=== PATIENT | female | born 1970 | race Caucasian/White ===

== ENCOUNTER 2020-01-08 15:07 | Emergency (ER) | payer OTHER ==
[~2020-01-08] VITALS: Ht 165.1 cm; Wt 99.8 kg
--- NOTE | 2020-01-08 15:47 | NUR ---
PATIENT WAS SEEN BY . DC, RX AND FOLLOW UP INSTRUCTIONS GIVEN AND EXPLAINED TO PATIENT WHO STATES SHE UNDERSTANDS ALL INSTRUCTIONS.
== END 2020-01-08 15:51 | disposition home or self-care (01) ==
LOC: ER 15:09
DX: J06.9 Acute upper respiratory infection, unspecified (principal)
CPT/HCPCS: 71045; A4663

== ENCOUNTER 2020-01-12 18:45 | Emergency (ER) | payer OTHER ==
[~2020-01-12] VITALS: Ht 165.1 cm; Wt 101.6 kg
[2020-01-12] MEDS ORDERED: IV NORMAL SALINE 1000 ML BAG IV ONE (19:30)
[2020-01-12] MEDS ORDERED: LORAZEPAM 2 MG/1 ML VIAL IV ONE (19:30)
[2020-01-12] MEDS ORDERED: LORAZEPAM 2 MG/1 ML VIAL ONE (19:44)
[2020-01-12 19:52] LABS: BASOPHILS # (AUTO) 0.1 K/uL (0.0-8.0); BASOPHILS % (AUTO) 0.5 % (0.0-2.0); EOSINOPHILS % (AUTO) 0.1 % (0.0-7.0); HEMATOCRIT 42.7 % (31.2-41.9); HEMOGLOBIN 14.4 g/dL (10.9-14.3); LYMPHOCYTES # (AUTO) 2.2 K/uL (20.0-40.0); LYMPHOCYTES % (AUTO) 16.9 % (20.5-51.5); MEAN CORPUSCULAR HEMOGLOBIN 30.8 uug (24.7-32.8); MEAN CORPUSCULAR HGB CONC 34 g/dL (32.3-35.6); MEAN CORPUSCULAR VOLUME 91.5 fL (75.5-95.3); MONOCYTES # (AUTO) 0.5 K/uL (2.0-10.0); MONOCYTES % (AUTO) 4.1 % (0.0-11.0); NEUTROPHILS # (AUTO) 10.3 K/uL (1.8-8.9); NEUTROPHILS % (AUTO) 78.4 % (38.5-71.5); PLATELET COUNT (AUTO) 298 K/uL (179-408); RED BLOOD CELL COUNT(AUTO) 4.67 MIL/uL (3.63-4.92); WHITE BLOOD COUNT (AUTO) 13.2 K/uL (3.8-11.8)
[2020-01-12 20:03] LABS: ALANINE AMINOTRANSFERASE 37 U/L (14-59); ALKALINE PHOSPHATASE 85 U/L (50-136); ASPARTATE AMINOTRANSFERASE 23 U/L (15-37); BILIRUBIN,DIRECT 0.1 mg/dL (0.0-0.2); BILIRUBIN,TOTAL 0.2 mg/dL (0.2-1.0); CARBON DIOXIDE 24 mmol/L (21-32); CHLORIDE 102 mmol/L (98-107); CREATINE KINASE, TOTAL 103 U/L (26-192); ETHANOL < 3 MG/DL (0-0); GLUCOSE 133 mg/dL (74-106); TOTAL PROTEIN, SERUM 7.9 g/dL (6.4-8.2); UREA NITROGEN, BLOOD 8 mg/dL (7-18)
--- NOTE | 2020-01-12 21:01 | NUR ---
Patient discharged to home in stable conditon. Written and verbal after care instructions given. Patient verbalizes understanding of instructions. Ambulated from ER with stable gait. Driven home by significant other
[2020-01-12 21:02] VITALS: BP 128/79
== END 2020-01-12 21:03 | disposition home or self-care (01) ==
LOC: ER 18:47
DX: F15.93 Other stimulant use, unspecified with withdrawal (principal)
CPT/HCPCS: 36415; 80048; 80076; 82550; 85025; 93005; 96374; 99284; G0480; J2060; A4663

== ENCOUNTER 2022-02-05 01:48 | Emergency (ER) | payer OTHER ==
[~2022-02-05] VITALS: Ht 165.1 cm; Wt 95.3 kg
--- NOTE | 2022-02-05 02:01 | NUR ---
Carmen PRITCHARD accompanied Dr. Hoyos during MSE.
[2022-02-05 02:34] LABS: HEMATOCRIT 38.4 % (31.2-41.9); MEAN CORPUSCULAR HEMOGLOBIN 29.2 uug (24.7-32.8); MEAN CORPUSCULAR VOLUME 87.4 fL (75.5-95.3); PLATELET COUNT (AUTO) 213 K/uL (179-408)
[2022-02-05 02:40] LABS: CARBON DIOXIDE 27 mmol/L (21-32); CHLORIDE 105 mmol/L (98-107); CREATININE 1.1 mg/dL (0.6-1.3); GLUCOSE 88 mg/dL (74-106); UREA NITROGEN, BLOOD 13 mg/dL (7-18)
[2022-02-05] MEDS ORDERED: DIATR MEGLU/DIATRIZOATE SODIUM 30 ML BOTTLE ONE (02:41)
[2022-02-05 02:43] LABS: *BILIRUBIN,URIN NEGATIVE (NEGATIVE); *BLOOD, URINE TRACE (NEGATIVE); *COLOR,URINE YELLOW (YELLOW); *KETONES,URINE NEGATIVE (NEGATIVE); *UROBILINOGEN,URINE 0.2 E.U./dl (NORMAL); LEUKOCYTE ESTERASE ,URINE NEGATIVE (NEGATIVE); NITRITE, URINE NEGATIVE (NEGATIVE); PH,URINE 5.5 (5.0-8.0); UGLUCOSE NEGATIVE (NEGATIVE)
[2022-02-05 02:44] LABS: *CLARITY,URINE HAZY (CLEAR)
[2022-02-05 02:45] LABS: ALANINE AMINOTRANSFERASE 35 U/L (14-59); ALKALINE PHOSPHATASE 69 U/L (50-136); ASPARTATE AMINOTRANSFERASE 21 U/L (15-37); BILIRUBIN,DIRECT < 0.1 mg/dL (0.0-0.2); BILIRUBIN,TOTAL 0.2 mg/dL (0.2-1.0); LIPASE 113 U/L (73-393); TOTAL PROTEIN, SERUM 6.8 g/dL (6.4-8.2)
[2022-02-05 02:45] LABS: *URINE HCG, QUAL NEGATIVE (NEGATIVE)
--- NOTE | 2022-02-05 02:50 | NUR ---
pt taken to CT via wheelchair.
[2022-02-05 02:57] LABS: BACTERIA,URINE FEW /HPF (NONE SEEN); RBC,URINE 0-3 /HPF (0-3); SQUAMOUS EPITHELIAL CELL,UR MODERATE /HPF (NONE SEEN); WBC,URINE 0-3 /HPF (0-3)
--- NOTE | 2022-02-05 02:59 | NUR ---
pt returned from CT.
[2022-02-05] MEDS ORDERED: MAG HYDROX/AL HYDROX/SIMETH 30 ML LIQUID UDC ONE (04:39)
[2022-02-05] MEDS ORDERED: MAG HYDROX/AL HYDROX/SIMETH 30 ML LIQUID UDC PO ONE (04:45)
--- NOTE | 2022-02-05 04:45 | NUR ---
Patient discharged to home in stable condition. Written and verbal after care instructions given. Patient verbalizes understanding of instructions. Stressed follow up or return to ER for worsening s/s. pt ambulated with steady gait. denies pain. no SOB. no chest pain. AOx4.
[2022-02-05 04:46] VITALS: BP 141/101
== END 2022-02-05 04:47 | disposition home or self-care (01) ==
LOC: ER 01:54
DX: R10.9 Unspecified abdominal pain (principal); Z98.84 Bariatric surgery status; K44.9 Diaphragmatic hernia without obstruction or gangrene; N83.202 Unspecified ovarian cyst, left side; Z98.82 Breast implant status; E66.9 Obesity, unspecified; Z68.34 Body mass index [BMI] 34.0-34.9, adult
CPT/HCPCS: 36415; 83690; 84703; 85025; A4663; Q9963

== ENCOUNTER 2022-10-11 23:10 | Emergency (ER) | payer OTHER ==
[~2022-10-11] VITALS: Ht 165.1 cm; Wt 95.3 kg
== END 2022-10-12 02:08 | disposition home or self-care (01) ==
LOC: ER 23:10
DX: N81.4 Uterovaginal prolapse, unspecified (principal); R03.0 Elevated blood-pressure reading, without diagnosis of hypertension
CPT/HCPCS: A4663